=== PATIENT | female | born 1955 ===

== ENCOUNTER 2024-11-09 06:25 | Day surgery (SDC) | payer OTHER ==
[2024-11-03 13:03] VITALS: BP 130/78
[~2024-11-09] VITALS: Ht 160 cm; Wt 62.6 kg
[~2024-11-09 06:25] MED LIST: BENICAR40 MG PO; CARVEDILOL3.125 MG; LIPITOR20 MG PO; ORTHO DF 3,7751 EACH PO
[2024-11-09] MEDS ORDERED: LIDOCAINE HCL 1%/EPINEPHRINE 20ML VIAL IJ ONE (11:34)
[2024-11-09] MEDS ORDERED: CLINDAMYCIN PHOSPHATE 150 MG/ML (900mg) ONE (11:38)
[2024-11-09] MEDS ORDERED: LIDOCAINE HCL 1% 20 ML VIAL IJ ONE (11:40)
== END 2024-11-09 13:55 | disposition home or self-care (01) ==
LOC: CIR.AMB 06:25
PROVIDERS: ATTEND Surgery Surgery of the Hand
DX: M25.842 Other specified joint disorders, left hand (principal); D21.22 Benign neoplasm of connective and other soft tissue of left lower limb, including hip; Z88.0 Allergy status to penicillin; I10 Essential (primary) hypertension; E78.5 Hyperlipidemia, unspecified; M19.90 Unspecified osteoarthritis, unspecified site; J32.9 Chronic sinusitis, unspecified